=== PATIENT | male | born 2000 | race Two or more races ===

== ENCOUNTER 2020-06-27 03:37 | Emergency (ER) | payer OTHER ==
[~2020-06-27] VITALS: Ht 170.2 cm; Wt 68.9 kg
--- NOTE | 2020-06-27 03:52 | NUR ---
[employer] at bedside
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
--- NOTE | 2020-06-27 03:58 | NUR ---
pt was taken to [place]
--- NOTE | 2020-06-27 04:40 | NUR ---
BACK FROM CT. CONNECTED BACK TO THE MONITOR, NO CHANGE IN LOC OR MENTATION NOTED. VSS. DENIED ANY DISCOMFORT. [employer] REMAINED AT BED SIDE. WILL CONT TO MONITOR ,
--- NOTE | 2020-06-27 05:10 | NUR ---
PT RESTING IN BED , W/ C COLLAR IN PLACE. REMAINED ON CONTINUOUS MONITORING. VSS. [employer] OFFICERS AT BED SIDE. WILL CONT TO MONITOR ,
--- NOTE | 2020-06-27 05:42 | NUR ---
pt is medically stable for d/c. [facility]. Written and verbal after care instructions given. C collar was removed per MD's order.
[2020-06-27 05:44] VITALS: BP 108/50
== END 2020-06-27 05:46 ==
LOC: ER 03:39
DX: S40.021A Contusion of right upper arm, initial encounter (principal); S80.02XA Contusion of left knee, initial encounter; R51.9 Headache, unspecified; Z02.89 Encounter for other administrative examinations; W18.39XA Other fall on same level, initial encounter; Y93.89 Activity, other specified; Y92.89 Other specified places as the place of occurrence of the external cause; Y99.8 Other external cause status
CPT/HCPCS: 70450-TC; 71250-TC; 72125-TC; 73030-TC; 73080-TC; 73560-TC